=== PATIENT | male | born 1965 ===

== ENCOUNTER 2016-08-11 16:13 | Emergency (ER) | payer MEDICAID ==
[2016-08-11 16:27] VITALS: BP 151/77; PULSE 73; RESP 18; TEMP 98.4; O2SAT 96
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
--- NOTE | 2016-08-11 16:47 | RAD ---
PROCEDURE: Left Knee Radiographs. HISTORY: Pain. COMPARISON: None. FINDINGS: BONES: Bone alignment and mineralization are normal. There is no acute fracture or bone destruction. JOINTS: Normal. JOINT EFFUSION: None. OTHER FINDINGS: None. IMPRESSION: Normal examination.
== END 2016-08-11 17:34 | disposition home or self-care (01) ==
LOC: C.ER 16:13
DX: M25.562 Pain in left knee (principal); S50.871A Other superficial bite of right forearm, initial encounter; Y04.1XXA Assault by human bite, initial encounter; Y92.9 Unspecified place or not applicable

== ENCOUNTER 2016-08-19 10:46 | Emergency (ER) | payer MEDICAID ==
[2016-08-19 10:55] VITALS: RESP 18
[2016-08-19] MEDS ORDERED: Lidocaine 2% Inj (20ml) INFIL ONE (12:19)
[2016-08-19] MEDS ORDERED: Lidocaine 2% Inj (20ml) ONE (12:52)
--- NOTE | 2016-08-19 13:07 | CT ---
PROCEDURE: CT HEAD WITHOUT CONTRAST. HISTORY: Trauma COMPARISON: None available. TECHNIQUE: Axial computed tomography images were obtained through the head/brain without intravenous contrast. Radiation dose: Total exam DLP = 972.73 mGy-cm. This CT exam was performed using one or more of the following dose reduction techniques: Automated exposure control, adjustment of the mA and/or kV according to patient size, and/or use of iterative reconstruction technique. FINDINGS: HEMORRHAGE: No intracranial hemorrhage. BRAIN: No mass effect or edema. The rosario-white matter differentiation appears intact. Please note that MRI with diffusion imaging is more sensitive in the detection of acute ischemic event. VENTRICLES: No hydrocephalus. CALVARIUM: Unremarkable. PARANASAL SINUSES: Mucosal thickening of the left maxillary sinus. Small fluid levels also evident within the left maxillary sinus ; fluid contents appear mixed density with high density material suspected to reflect blood products. Additionally there is mild mucosal thickening of the left ethmoid air cells. MASTOID AIR CELLS: Unremarkable as visualized. No inflammatory changes. OTHER FINDINGS: Comminuted left orbital floor fracture with herniation of orbital fat. Evidence of nondisplaced left nasal bone fracture with associated soft tissue swelling. IMPRESSION: Left orbital floor fracture with fluid level in the right maxillary sinus containing high-density material suspected to reflect blood products. Left orbital floor fracture appears comminuted with herniation of orbital fat. Suggest correlation with ophthalmic examination and CT of the orbits if indicated. Evidence of nondisplaced left nasal bone fracture with associated soft tissue swelling. No acute intracranial pathology identified.
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
[2016-08-19 14:09] VITALS: BP 131/75; PULSE 60; TEMP 98.3
[2016-08-19 14:11] VITALS: O2SAT 98
--- NOTE | 2016-08-19 14:12 | RAD ---
PROCEDURE: Radiographs of the left humerus. HISTORY: Trauma COMPARISON: None. FINDINGS: BONES: Bone alignment and mineralization are normal. No acute fracture or focal lesion. SOFT TISSUES: Normal. OTHER FINDINGS: None. IMPRESSION: No acute fracture.
== END 2016-08-19 14:34 | disposition home or self-care (01) ==
LOC: SUPCPDRO 10:46 → C.ER 10:46
DX: S02.32XA Fracture of orbital floor, left side, initial encounter for closed fracture (principal); S01.312A Laceration without foreign body of left ear, initial encounter; S40.022A Contusion of left upper arm, initial encounter; W01.0XXA Fall on same level from slipping, tripping and stumbling without subsequent striking against object, initial encounter; Y93.01 Activity, walking, marching and hiking; Y92.480 Sidewalk as the place of occurrence of the external cause

== ENCOUNTER 2017-08-07 18:20 | Emergency (ER) | payer MEDICAID ==
[2017-08-07 18:39] VITALS: BP 100/63; PULSE 65; RESP 18; TEMP 98.5; O2SAT 97
[2017-08-07] MEDS ORDERED: Amoxicillin-Clav 875-125 mg Tab PO STA (20:17)
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
== END 2017-08-07 19:26 | disposition home or self-care (01) ==
LOC: C.ER 18:20
DX: H00.021 Hordeolum internum right upper eyelid (principal)